=== PATIENT | female | born 1960 | race Caucasian/White ===

== ENCOUNTER 2022-01-16 16:26 | Emergency (ER) | payer BC ==
[~2022-01-16] VITALS: Ht 157.5 cm; Wt 100.0 kg
[2022-01-16 17:04] VITALS: TEMP 98
[2022-01-16 18:07] LABS: BASO % 0.7 % (0.0-2.0); EOS # 0.2 K/mm3 (0.0-0.7); EOS % 2.6 % (0.0-4.0); GRAN # 3.2 K/mm3 (1.4-6.5); GRAN % 54.1 % (42.2-75.2); HEMATOCRIT 39.2 % (37.0-47.0); HEMOGLOBIN 13.2 g/dl (12.5-16.0); LYMPH % 33.6 % (20.0-51.0); MEAN CELL VOLUME 86 fl (80.0-100.0); MEAN CORPUSCULAR HEMOGLOBIN 29 pg (27-31); MEAN CORPUSCULAR HGB CONC 34 g/dl (33.0-37.0); MEAN PLATELET VOLUME 9.5 fl (7.4-10.4); MONO # 0.5 K/mm3 (0.1-0.6); MONO % 8.7 % (1.7-9.3); PLATELET COUNT 181 K/mm3 (130-400); RED BLOOD COUNT 4.58 M/mm3 (4.10-5.30)
[2022-01-16] MEDS ORDERED: PROZAC 20MG20 MG PO (18:14)
[2022-01-16] MEDS ORDERED: METROCREAM CREA45 GM TP (18:14)
[2022-01-16] MEDS ORDERED: LOVENOX 100100 MG/ML SQ (18:57)
[2022-01-16] MEDS ORDERED: CEPHALEXIN500 M1 PO (19:00)
[2022-01-16 19:10] LABS: ALBUMIN 3.7 gm/dL (3.4-4.8); BILIRUBIN,TOTAL 0.4 mg/dL (0.2-1.2); CALCIUM 8.9 mg/dL (8.4-10.2); CREATININE, serum 0.73 mg/dL (0.57-1.11); POTASSIUM 3.3 mmol/L (3.5-4.5); TOTAL PROTEIN 7.8 gm/dL (6.2-8.1)
[2022-01-16 19:25] VITALS: BP 139/70; PULSE 70
== END 2022-01-16 19:26 | disposition home or self-care (01) ==
LOC: COL.ER 16:26
PROVIDERS: Nurse Practitioner Family
DX: L03.115 Cellulitis of right lower limb (principal)
CPT/HCPCS: J1650

== ENCOUNTER → 2022-01-19 | Outpatient (CLI) | payer BC ==
[~2022-01-19] MED LIST: CEPHALEXIN500 M1 PO; LOVENOX 100100 MG/ML SQ; METROCREAM CREA45 GM TP; PROZAC 20MG20 MG PO
== END ==
LOC: COL.VAS 07:44
DX: M79.89 Other specified soft tissue disorders (principal); M79.661 Pain in right lower leg